=== PATIENT | female | born 1995 | race Asian ===

== ENCOUNTER 2017-05-30 16:31 | Inpatient (IN) | payer BC, MEDICAID, OTHER ==
[~2017-05-30] VITALS: Ht 175.3 cm; Wt 88.6 kg
[~2017-05-30 16:31] MED LIST: CALC-141 PO; IBUP-1222 PO; OXYC-302 PO; PREN1TAB28 PO
[2017-05-30] MEDS ORDERED: OXYTOCIN 30U/ 0.9% NaCL 500ML 500 ML IV ONE (19:46)
[2017-05-30] MEDS ORDERED: FENTANYL PF 100 MCG/2ML IV PRN (20:00)
[2017-05-30] MEDS ORDERED: TERBUTALINE 1 MG/ML, 1ML SQ PRN (20:00)
[2017-05-30] MEDS ORDERED: TERBUTALINE 1 MG/ML, 1ML IVPush PRN ×2 (20:00)
[2017-05-30] MEDS ORDERED: ONDANSETRON 2MG/ML, 2ML IVPush PRN (20:00)
[2017-05-30] MEDS ORDERED: CALCIUM CARBONATE 500 MG TAB.CHEW PO PRN (20:00)
[2017-05-30] MEDS: PLEASE ENTER HEIGHT AND WEIGHT MC SCH (20:00)
[2017-05-30] MEDS ORDERED: FENTANYL PF 100 MCG/2ML IVPush PRN (20:00)
[2017-05-30 20:12] LABS: HEMOGLOBIN 10.5 g/dL (11.7-16.4); WHITE BLOOD COUNT 11.8 x10^3/uL (3.4-10)
[2017-05-30 20:39] VITALS: BP 121/70
[2017-05-30] MEDS ORDERED: NEWBORN KIT ONE (21:15)
[2017-05-30] MEDS ORDERED: OXYTOCIN 30U/ 0.9% NaCL 500ML 500 ML ONE (21:15)
[2017-05-31] MEDS: D5%-LACTATED RINGERS 1,000 ML IV SCH ×4 (03:46→19:46)
[2017-05-31] MEDS: PLEASE ENTER HEIGHT AND WEIGHT MC SCH ×3 (04:00→20:00)
[2017-05-31] MEDS: LACTATED RINGERS 1,000 ML IV SCH ×4 (06:57→18:13)
[2017-05-31] MEDS ORDERED: OXYTOCIN 30U/ 0.9% NaCL 500ML 500 ML IV PRN (06:57)
[2017-05-31] MEDS ORDERED: FENTANYL/BUPIV./NS/PF 250 ML EPIDCONT ONE (14:57)
[2017-05-31] MEDS ORDERED: LIDOCAINE/PF 1.5%-EPI 1:200K, 30ML ONE (14:58)
[2017-05-31] MEDS ORDERED: LIDOCAINE 1%, 20ML ONE ×2 (14:58→17:00)
[2017-05-31] MEDS ORDERED: LACTATED RINGERS 1,000 ML IV SCH (15:26)
[2017-05-31] MEDS ORDERED: FENTANYL/BUPIV./NS/PF 250 ML EPIDCONT SCH (15:26)
[2017-05-31] MEDS ORDERED: EPHEDRINE 50 MG/ML, 1ML IVPush PRN (15:30)
[2017-05-31] MEDS ORDERED: LACTATED RINGERS 1,000 ML IVBOLUS PRN (15:30)
[2017-05-31] MEDS ORDERED: NALOXONE 0.4 MG/ML, 1ML IVPush PRN (15:30)
[2017-05-31] MEDS ORDERED: MISOPROSTOL 200 MCG TABLET ONE (17:00)
[2017-05-31] MEDS ORDERED: OXYTOCIN 30U/ 0.9% NaCL 500ML 500 ML IV SCH (17:54)
[2017-05-31] MEDS ORDERED: CALCIUM CARBONATE 500 MG TAB.CHEW PO PRN (18:00)
[2017-05-31] MEDS ORDERED: RHOGAM FROM BLOOD BANK 1 NOTE EA IM/IV ONE (18:00)
[2017-05-31] MEDS ORDERED: OXYcodone/APAP 5/325MG TABLET PO PRN (18:00)
[2017-05-31] MEDS ORDERED: MISOPROSTOL 200 MCG TABLET PR PRN (18:00)
[2017-05-31] MEDS ORDERED: ONDANSETRON 2MG/ML, 2ML IV PRN (18:00)
[2017-05-31] MEDS ORDERED: MAGNESIUM HYDROXIDE 8%, 30ML UDC PO PRN (18:00)
[2017-05-31] MEDS ORDERED: DOCUSATE 100 MG CAPSULE PO PRN (18:00)
[2017-05-31] MEDS ORDERED: MEASLES,MUMPS&RUBELLA VACC/PF 0.5 ML SQ-VACC PRN (18:00)
[2017-05-31] MEDS ORDERED: DIPH,PERTUSS(ACELL),TET VAC/PF NC IM-VACC PRN (18:00)
[2017-05-31] MEDS ORDERED: IBUPROFEN 600 MG TABLET PO PRN (18:00)
[2017-05-31] MEDS ORDERED: OXYcodone IR 5MG TABLET PO PRN (18:00)
[2017-05-31] MEDS ORDERED: OXYTOCIN 30U/ 0.9% NaCL 500ML 500 ML ONE (18:11)
[2017-05-31 20:00] VITALS: BP 117/73
[2017-06-01 01:45] VITALS: BP 109/63
[2017-06-01 01:53] LABS: HEMOGLOBIN 9.4 g/dL (11.7-16.4); WHITE BLOOD COUNT 13.9 x10^3/uL (3.4-10)
[2017-06-01 05:10] VITALS: BP 112/61
[2017-06-01 07:45] VITALS: BP 130/83
[2017-06-01] MEDS ORDERED: IBUP-1222 PO (08:03)
[2017-06-01] MEDS ORDERED: PRENATAL VIT/IRON/FA 1 EACH TABLET PO SCH (09:00)
== END 2017-06-01 08:45 | disposition home or self-care (01) | DRG 775 ==
LOC: LDIP 19:41 → 2NW 05-31 19:34
PROVIDERS: ADMIT Obstetrics & Gynecology Gynecology; ATTEND Obstetrics & Gynecology Gynecology
PROC: 10E0XZZ Delivery of Products of Conception, External Approach (ICD-10-PCS; principal; 2017-05-31)
PROC: 3E0P3VZ Introduction of Hormone into Female Reproductive, Percutaneous Approach (ICD-10-PCS; 2017-05-31)
PROC: 3E0P7VZ Introduction of Hormone into Female Reproductive, Via Natural or Artificial Opening (ICD-10-PCS; 2017-05-31)
PROC: 3E0R3BZ Introduction of Anesthetic Agent into Spinal Canal, Percutaneous Approach (ICD-10-PCS; 2017-05-31)
PROC: 00HU33Z Insertion of Infusion Device into Spinal Canal, Percutaneous Approach (ICD-10-PCS; 2017-05-31)
PROC: 0U7C7ZZ Dilation of Cervix, Via Natural or Artificial Opening (ICD-10-PCS; 2017-05-31)
PROC: 10907ZC Drainage of Amniotic Fluid, Therapeutic from Products of Conception, Via Natural or Artificial Opening (ICD-10-PCS; 2017-05-31)
DX: O36.5930 Maternal care for other known or suspected poor fetal growth, third trimester, not applicable or unspecified (principal); Z37.0 Single live birth; Z3A.38 38 weeks gestation of pregnancy; Z82.49 Family history of ischemic heart disease and other diseases of the circulatory system; Z83.3 Family history of diabetes mellitus; Z80.9 Family history of malignant neoplasm, unspecified; Z81.8 Family history of other mental and behavioral disorders
CPT/HCPCS: 36415; 85025; 86850; 86900; J3490; J2590; J3010; J7120; J7121